=== PATIENT | male | born 1965 | race Caucasian/White ===

== ENCOUNTER 2016-03-30 07:39 | Emergency (ER) | payer BC ==
--- NOTE | 2016-03-30 08:02 | PDOC ---
History of Present Illness - General Chief Complaint: Injury Stated Complaint: HAND INJURY Time Seen by Provider: 03/30/16 07:53 History Source: Patient Exam Limitations: No Limitations - History of Present Illness Initial Comments: 03/30/16 07:58 50-year-old male status post injury to the left fourth digit. Patient states was using a hammer this morning when he missed the nail striking his left fingertip. Patient states is able to move the area but does have discomfort to the left fourth fingertip. Patient denies previous injury to the affected area and denies any sensory changes or radiation of pain. Timing/Duration: 1 hour Severity: mild Associated Symptoms: reports: denies symptoms Past History - Past Medical History Allergies/Adverse Reactions: Allergies Allergy/AdvReac Type Severity Reaction Status Date / Time No Known Allergies Allergy Verified 03/30/16 07:45 Home Medications: Ambulatory Orders NK [No Known Home Medication] 06/13/15 Diabetes: No HTN: No Hypercholesterolemia: Yes HIV: No Liver Disease: No - Surgical History Cardiac Surgery: (DENIES SX) - Immunization History Immunization Up to Date: Yes - Psycho/Social/Smoking Cessation Hx Anxiety: No Suicidal Ideation: No Smoking Status: No Smoking History: Never smoked Have you smoked in the past 12 months: No Number of Cigarettes Smoked Daily: 0 Information on smoking cessation initiated: No Hx Alcohol Use: No Drug/Substance Use Hx: No Substance Use Type: None Patient Lives Alone: No Lives with/in: spouse/SO Review of Systems - Review of Systems Able to Perform ROS?: Yes Musculoskeletal: Yes: Joint Pain (left 4th digit) Integumentary: No: Bruising, Erythema Endocrine: No: Symptoms Reported Hematologic/Lymphatic: No: Symptoms Reported *Physical Exam - Vital Signs Last Vital Signs Temp Pulse Resp BP Pulse Ox 97.5 F L 64 18 122/75 100 03/30/16 07:46 03/30/16 07:46 03/30/16 07:46 03/30/16 07:46 03/30/16 07:46 - Physical Exam General Appearance: Yes: Nourished, Appropriately Dressed. No: Apparent Distress (left 4th digit) Extremity: positive: Normal Capillary Refill (left fourth digit), Normal Inspection, Normal Range of Motion, Tender (left 4th dip joint) Integumentary: positive: Normal Color, Warm, Moist. negative: Swelling, Ecchymosis Neurologic: positive: Motor Strength 5/5 (left hand grasp, ambulatory) ED Treatment Course - RADIOLOGY Radiology Studies Ordered: Category Date Time Status FINGER(S) LEFT [RAD] Stat Radiology 03/30/16 07:57 Ordered Medical Decision Making - Medical Decision Making 03/30/16 08:01 Pt with left 4th digit crush injury. Pt ordered for xray to r/o fx 03/30/16 08:19 Patient be discharged home with supportive care. X-ray negative for acute findings. *DC/Admit/Observation/Transfer Diagnosis at time of Disposition: Contusion of fingertip Qualifiers: Encounter type: initial encounter Qualified Code(s): S60.00XA - Contusion of unspecified finger without damage to nail, initial encounter - Discharge Dispostion Disposition: HOME Condition at time of disposition: Good - Referrals Referrals: Manoj Barrientos MD [Primary Care Provider] - - Patient Instructions Printed Discharge Instructions: DI for Contusion Additional Instructions: The x-ray was negative and I recommend applying ice and taking Motrin for the next few days.
[2016-03-30 08:10] VITALS: BP 122/75; PULSE 64; TEMP 97.5; BMI 23.8
== END 2016-03-30 08:29 | disposition home or self-care (01) ==
LOC: JER 07:39
DX: S60.042A Contusion of left ring finger without damage to nail, initial encounter (principal); W27.8XXA Contact with other nonpowered hand tool, initial encounter; Y93.89 Activity, other specified; Y92.89 Other specified places as the place of occurrence of the external cause
CPT/HCPCS: 73140-TC-LT; 99281-25

== ENCOUNTER 2016-05-12 18:58 | Emergency (ER) | payer BC, OTHER ==
[2016-05-12 19:15] VITALS: BP 134/87; PULSE 65; TEMP 98; BMI 24.2
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
[2016-05-12] MEDS ORDERED: ACETAMINOPHEN 325 MG TABLET (FP) PO ONE (20:04)
[2016-05-12] MEDS ORDERED: ACETAMINOPHEN 325 MG TABLET (FP) ONE (20:06)
[2016-05-12 20:46] LABS: BASOPHIL 1.3 % (0-2.0); EOSINOPHIL 6.2 % (0-4.5); MCH 31.5 pg (25.7-33.7); MCHC 35.3 g/dl (32.0-35.9); MEAN CELL VOLUME 89.3 fl (80-96); MEAN PLT VOLUME 6.6 fl (7.5-11.1); NEUTROPHILS 48.1 % (42.8-82.8); PLATELET COUNT 245 K/MM3 (134-434); RDW 13.6 % (11.9-15.9); WHITE BLOOD COUNT 5.4 K/mm3 (4.0-10.0)
[2016-05-12 21:18] LABS: ALBUMIN 4.3 g/dl (3.4-5.0); ANION GAP 8 (8-16); BILIRUBIN,TOTAL 0.4 mg/dL (0.2-1.0); CALCIUM 9.7 mg/dL (8.5-10.1); CHOLESTEROL 300 mg/dL (50-200); CO2 27 mmol/L (21-32); CREATININE 1.1 mg/dL (0.7-1.3); GLUCOSE,RANDOM 86 mg/dL (74-106); LDH 173 U/L (87-241); PHOSPHOROUS 3.7 mg/dL (2.5-4.9); SGOT/AST 23 U/L (15-37); SGPT/ALT 41 U/L (12-78); TOT PROT 7.3 g/dl (6.4-8.2)
[2016-05-12 21:19] LABS: ALK PHOS 81 U/L (45-117)
[2016-05-12 22:01] LABS: HIV 1 & 2 AB NEGATIVE; HIV 1 AGp24 NEGATIVE
[2016-05-14 06:06] LABS: HEP B SURFACE AB Reactive (.)
== END 2016-05-12 20:58 | disposition home or self-care (01) ==
LOC: JERFT 18:58
DX: Z77.21 Contact with and (suspected) exposure to potentially hazardous body fluids (principal); Y35.91XA Legal intervention, means unspecified, law enforcement official injured, initial encounter; X58.XXXA Exposure to other specified factors, initial encounter; Y93.89 Activity, other specified; Y92.9 Unspecified place or not applicable; Y99.0 Civilian activity done for income or pay
CPT/HCPCS: 36415; 80053; 82465; 82977; 83615; 84100; 84478; 84550; 85025; 86704; 86706; 87340; 87389; 99281-25

== ENCOUNTER 2016-08-11 08:07 | Emergency (ER) | payer BC, OTHER ==
[2016-08-11 08:11] VITALS: BP 120/77; PULSE 78; TEMP 97.6; BMI 25.8
--- NOTE | 2016-08-11 08:29 | PDOC ---
History of Present Illness - General Chief Complaint: Eye Problem Stated Complaint: EYE INJURY Time Seen by Provider: 08/11/16 08:21 History Source: Patient Exam Limitations: No Limitations - History of Present Illness Initial Comments: 08/11/16 08:33 50 yr male states he accidentaly injured his right cheek below eye on the door frame of his car this AM. Pt denies any vision changes or eye pain. Severity: mild Past History - Past Medical History Allergies/Adverse Reactions: Allergies Allergy/AdvReac Type Severity Reaction Status Date / Time No Known Allergies Allergy Verified 08/11/16 08:11 Home Medications: Ambulatory Orders NK [No Known Home Medication] 06/13/15 Diabetes: No HTN: No Hypercholesterolemia: Yes HIV: No Liver Disease: No - Surgical History Cardiac Surgery: (DENIES SX) - Immunization History Immunization Up to Date: Yes - Psycho/Social/Smoking Cessation Hx Anxiety: No Suicidal Ideation: No Smoking Status: No Smoking History: Never smoked Have you smoked in the past 12 months: No Number of Cigarettes Smoked Daily: 0 Hx Alcohol Use: No Drug/Substance Use Hx: No Substance Use Type: None Review of Systems - Review of Systems Able to Perform ROS?: Yes Is the patient limited Yakut proficient: No Constitutional: No: Symptoms Reported HEENTM: Yes: See HPI. No: Symptoms Reported Respiratory: No: Symptoms reported Cardiac (ROS): No: Symptoms Reported ABD/GI: No: Symptoms Reported : No: Symptoms Reported Musculoskeletal: No: Symptoms Reported Integumentary: No: Symptoms Reported Neurological: No: Symptoms reported *Physical Exam - Vital Signs Last Vital Signs Temp Pulse Resp BP Pulse Ox 97.6 F 78 20 120/77 100 08/11/16 08:08 08/11/16 08:08 08/11/16 08:08 08/11/16 08:08 08/11/16 08:08 - Physical Exam General Appearance: Yes: Nourished, Appropriately Dressed HEENT: positive: EOMI, AMELIA, Other (no orbital bony tenderness, no redness to cheek or face, no eye redness or tearing, no evidence of trauma ) Neck: negative: Tender Respiratory/Chest: positive: Lungs Clear, Normal Breath Sounds. negative: Chest Tender Cardiovascular: positive: Regular Rhythm, Regular Rate Gastrointestinal/Abdominal: positive: Soft Musculoskeletal: positive: Normal Inspection Extremity: positive: Normal Capillary Refill, Normal Inspection, Normal Range of Motion Integumentary: positive: Normal Color, Dry, Warm. negative: Swelling, Ecchymosis, Bruising Neurologic: positive: Fully Oriented, Alert, Normal Mood/Affect, Normal Response , Motor Strength 5 Medical Decision Making - Medical Decision Making 08/11/16 08:27 cc: trauma under right eye with door frame this am no change in vision, no tearing or pain in the eye, no redness or bruising to the cheek area visual acuity with glasses is 20/30 both eyes neg blurry vision or changes in vision pt refused pain meds 08/11/16 08:36 *DC/Admit/Observation/Transfer Diagnosis at time of Disposition: Contusion Qualifiers: Encounter type: initial encounter Contusion area: head Contusion of head detail : periocular area Laterality: right Qualified Code(s): S00.11XA - Contusion of right eyelid and periocular area, initial encounter - Discharge Dispostion Disposition: HOME Condition at time of disposition: Good - Referrals Referrals: Manoj Barrientos MD [Primary Care Provider] - - Patient Instructions Additional Instructions: apply ice every 2hrs for 15 minutes for the next 2 days while awake take motrin as needed for any pain Return to ER for any worsening pain or changes in condition
== END 2016-08-11 08:50 | disposition home or self-care (01) ==
LOC: JERFT 08:07
DX: S00.11XA Contusion of right eyelid and periocular area, initial encounter (principal); W22.8XXA Striking against or struck by other objects, initial encounter; Y93.89 Activity, other specified; Y92.89 Other specified places as the place of occurrence of the external cause
CPT/HCPCS: 99281-25

== ENCOUNTER 2016-09-24 08:22 | Emergency (ER) | payer BC ==
[2016-09-24 08:36] VITALS: BP 119/75; PULSE 74; TEMP 97.4; BMI 24.2
--- NOTE | 2016-09-24 09:09 | PDOC ---
History of Present Illness - General Chief Complaint: Laceration Stated Complaint: INJURY Time Seen by Provider: 09/24/16 09:00 History Source: Patient Exam Limitations: No Limitations - History of Present Illness Initial Comments: 09/24/16 09:13 Patient states was moving some furniture when he collided with sharp edge of a dresser causing an abrasion and contusion to his left thigh. Denies numbness or tingling to foot, no other injury. Occurred: reports: just prior to arrival Severity: reports: mild Pain Location: reports: lower extremity (left thigh) Modifying Factors: improves with: None Past History - Travel Traveled outside of the country in the last 30 days: No Close contact w/someone who was outside of country & ill: No - Past Medical History Allergies/Adverse Reactions: Allergies Allergy/AdvReac Type Severity Reaction Status Date / Time No Known Allergies Allergy Verified 09/24/16 08:30 Home Medications: Ambulatory Orders NK [No Known Home Medication] 06/13/15 Diabetes: No HTN: No Hypercholesterolemia: Yes HIV: No Liver Disease: No - Surgical History Cardiac Surgery: (DENIES SX) - Immunization History Immunization Up to Date: Yes - Psycho/Social/Smoking Cessation Hx Anxiety: No Suicidal Ideation: No Smoking Status: No Smoking History: Never smoked Have you smoked in the past 12 months: No Number of Cigarettes Smoked Daily: 0 Information on smoking cessation initiated: No Hx Alcohol Use: No Drug/Substance Use Hx: No Substance Use Type: None Trauma Specific PMHX - Complaint Specific PMHX Arthritis: No Back Injury: No Neck Injury: No Review of Systems - Review of Systems Able to Perform ROS?: Yes Is the patient limited Iraqi proficient: Yes Constitutional: Yes: See HPI. No: Symptoms Reported HEENTM: No: Symptoms Reported Musculoskeletal: Yes: Symptoms Reported, See HPI, Joint Pain, Muscle Pain ( midpoint lateral left thigh) All Other Systems: Reviewed and Negative *Physical Exam - Vital Signs Last Vital Signs Temp Pulse Resp BP Pulse Ox 97.4 F L 74 20 119/75 99 09/24/16 08:31 09/24/16 08:31 09/24/16 08:31 09/24/16 08:31 09/24/16 08:31 - Physical Exam General Appearance: Yes: Nourished, Appropriately Dressed. No: Apparent Distress HEENT: positive: AMELIA, Normal ENT Inspection, TMs Normal, Pharynx Normal Extremity: positive: Normal Capillary Refill, Normal Inspection, Normal Range of Motion Integumentary: positive: Normal Color, Dry, Warm, Other (official abrasion to the lateral aspect of left mid thigh approximately 4 cm in length, with some denuded skin's surface. Has full range of motion leg, thigh is intact without hematoma or significant tenderness. 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 *DC/Admit/Observation/Transfer Diagnosis at time of Disposition: Abrasion, left thigh, initial encounter Qualifiers: Encounter type: initial encounter Qualified Code(s): S70.312A - Abrasion, left thigh, initial encounter - Discharge Dispostion Disposition: HOME Condition at time of disposition: Stable Admit: No - Patient Instructions Printed Discharge Instructions: DI for Abrasion Additional Instructions: Rest, ice to area on and off for 15 minutes 4-6 times a day Apply bacitracin ointment 2-3 times a day until healed Avoid heavy lifting or exercise until pain and swelling is resolved or until further directed Keep area highly elevated to reduce swelling Followup with orthopedist in one to 2 days if not improving, if significantly improved may wait one week for followup with orthopedist May use ibuprofen 2-200 mg tablets every 6 hours as needed for pain
== END 2016-09-24 09:17 | disposition home or self-care (01) ==
LOC: JERFT 08:22 → JER 08:22 → JERFT 09:17
DX: S70.12XA Contusion of left thigh, initial encounter (principal); S70.311A Abrasion, right thigh, initial encounter; W22.03XA Walked into furniture, initial encounter; Y93.E9 Activity, other interior property and clothing maintenance; Y92.019 Unspecified place in single-family (private) house as the place of occurrence of the external cause
CPT/HCPCS: 99281-25

== ENCOUNTER 2017-05-25 14:12 | Emergency (ER) | payer BC ==
[2017-05-25 14:21] VITALS: BP 115/70; PULSE 85; TEMP 98.1; BMI 24.2
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
== END 2017-05-25 14:47 | disposition home or self-care (01) ==
LOC: JERFT 14:12
DX: S60.311A Abrasion of right thumb, initial encounter (principal); X58.XXXA Exposure to other specified factors, initial encounter; Y35.891A Legal intervention involving other specified means, law enforcement official injured, initial encounter; Y93.89 Activity, other specified; Y92.9 Unspecified place or not applicable; Y99.0 Civilian activity done for income or pay
CPT/HCPCS: 99281-25

== ENCOUNTER 2018-01-17 17:07 | Emergency (ER) | payer BC ==
--- NOTE | 2018-01-17 17:33 | PDOC ---
Rapid Medical Evaluation Chief Complaint: Pain Time Seen by Provider: 01/17/18 17:29 Medical Evaluation: Allergies Allergy/AdvReac Type Severity Reaction Status Date / Time No Known Allergies Allergy Verified 05/25/17 14:18 01/17/18 17:29 I have performed a brief in person evaluation. The patient presents with a CC of : left ankle pain HPI: Pt is a 52 YO male who states that "I sprained my left ankle" today. PE: Skin: Clear Lungs: Clear Heart: RRR Abd: no pain upon palpation MS: Pt has pain on the lateral malleolus. No deformity. Neuro: Alert Psych: Appropriate affect I have ordered the following: Pt refused an ankle xray The patient will proceed to [facility] for further evaluation. 01/17/18 17:32 Discharge Disposition - Diagnosis Ankle sprain Qualifiers: Encounter type: initial encounter Laterality: left - Referrals Referrals: Manoj Barrientos MD [Primary Care Provider] - - Patient Instructions - Post Discharge Activity
[2018-01-17 17:35] VITALS: BP 111/74; PULSE 96; TEMP 98.4; BMI 24.2
--- NOTE | 2018-01-17 18:11 | PDOC ---
History of Present Illness - General Chief Complaint: Pain Stated Complaint: LEFT ANKLE INJURY (YPD) Time Seen by Provider: 01/17/18 17:29 History Source: Patient Exam Limitations: Clinical Condition - History of Present Illness Initial Comments: 01/17/18 18:13 Patient with no significant past medication present with complaint of pain to lateral side of left ankle status post twisting left ankle on the curb while working. Patient refuses x-ray of ankle and report any he will come back for x- ray if increased pain. Denies problem with ambulation and report ankle pain as mild. Denies fall or dizziness Timing/Duration: 24 hours Past History - Past Medical History Allergies/Adverse Reactions: Allergies Allergy/AdvReac Type Severity Reaction Status Date / Time No Known Allergies Allergy Verified 05/25/17 14:18 Home Medications: Ambulatory Orders Leg Brace [Ankle Brace] 1 each MC DAILY #1 each 01/17/18 Naproxen 500 mg PO BID PRN #20 tablet 01/17/18 COPD: No DVT: No Diabetes: No HTN: No Hypercholesterolemia: Yes Liver Disease: No - Surgical History Cardiac Surgery: (DENIES SX) - Immunization History Immunization Up to Date: Yes - Suicide/Smoking/Psychosocial Hx Smoking Status: No Smoking History: Never smoked Have you smoked in the past 12 months: No Number of Cigarettes Smoked Daily: 0 Hx Alcohol Use: No Drug/Substance Use Hx: No Substance Use Type: None Review of Systems - Review of Systems Able to Perform ROS?: Yes Is the patient limited Indian proficient: No Constitutional: No: Weakness HEENTM: No: Recent change in vision, Double Vision Respiratory: No: Symptoms reported Cardiac (ROS): No: Symptoms Reported ABD/GI: No: Symptoms Reported Musculoskeletal: Yes: See HPI, Joint Pain (left ankle), Muscle Pain (lateral side of left ankle). No: Joint Swelling, Muscle Weakness, Joint Stiffness Integumentary: No: Erythema All Other Systems: Reviewed and Negative *Physical Exam - Vital Signs Last Vital Signs Temp Pulse Resp BP Pulse Ox 98.4 F 96 H 16 111/74 99 01/17/18 17:32 01/17/18 17:32 01/17/18 17:32 01/17/18 17:32 01/17/18 17:32 - Physical Exam Comments: 01/17/18 18:14 GENERAL: Well developed, well nourished. Awake and alert. No acute distress. CARDIOVASCULAR: Regular rate and rhythm. No murmurs, rubs, or gallops. PULMONARY: No evidence of respiratory distress. Lungs clear to auscultation bilaterally. No wheezing, rales or rhonchi. ABDOMINAL: Soft. Non-tender. Non-distended. No rebound or guarding. No organomegaly. Normoactive bowel sounds MUSCULOSKELETAL : mild tenderness over lateral aspect of left ankle. no swelling to ankle. negative anterior-posterior drawer test of left ankle. No bony deformities EXTREMITIES: No cyanosis. No clubbing. No edema. No calf tenderness. SKIN: Warm and dry. Normal capillary refill. No rashes. No jaundice. NEUROLOGICAL: Alert, awake, appropriate. No motor deficits in the lower extremities. Gait is normal without ataxia. PSYCHIATRIC: Cooperative. Good eye contact. Appropriate mood and affect. General Appearance: Yes: Nourished, Appropriately Dressed. No: Apparent Distress Medical Decision Making - Medical Decision Making 01/17/18 18:06 Patient with no significant past medication present with complaint of pain to lateral side of left ankle status post twisting left ankle on the curb while working. Patient refuses x-ray of ankle and report any he will come back for x- ray if increased pain. Patient is stable for discharge on naproxen and ankle support brace with orthopedics follow-up as needed *DC/Admit/Observation/Transfer Diagnosis at time of Disposition: Ankle sprain Qualifiers: Encounter type: initial encounter Involved ligament of ankle: unspecified ligament Laterality: left Qualified Code(s): S93.402A - Sprain of unspecified ligament of left ankle, initial encounter - Discharge Dispostion Disposition: HOME Condition at time of disposition: Stable Decision to Admit order: No - Prescriptions Prescriptions: Leg Brace [Ankle Brace] 1 each MC DAILY #1 each Naproxen 500 mg PO BID PRN #20 tablet PRN Reason: ankle pain - Referrals Referrals: Manoj Barrientos MD [Primary Care Provider] - Braxton Shelley MD [Staff Physician] - - Patient Instructions Printed Discharge Instructions: DI for Ankle Sprain Additional Instructions: take medication as prescribed for pain. wear ankle support brace on left daily until symptoms resolves. soak left foot in perez salt water daily as needed until symptoms resolves - Post Discharge Activity
== END 2018-01-17 18:16 | disposition home or self-care (01) ==
LOC: JERFT 17:07 → JER 17:07 → JERFT 18:16
PROC: 2W3RX1Z Immobilization of Left Lower Leg using Splint (ICD-10-PCS; principal; 2018-01-17)
DX: S93.402A Sprain of unspecified ligament of left ankle, initial encounter (principal); W10.1XXA Fall (on)(from) sidewalk curb, initial encounter; Y93.89 Activity, other specified; Y92.480 Sidewalk as the place of occurrence of the external cause; Y99.0 Civilian activity done for income or pay
CPT/HCPCS: 99281-25

== ENCOUNTER 2018-03-16 13:51 | Emergency (ER) | payer OTHER, BC ==
[2018-03-16 13:57] VITALS: BP 135/81; PULSE 80; TEMP 98.6; BMI 24.2
[2018-03-16] MEDS ORDERED: IBUPROFEN 400 MG TABLET (FP) PO ONE ×2 (14:05→14:07)
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
== END 2018-03-16 14:20 | disposition home or self-care (01) ==
LOC: JERFT 13:51
DX: S63.621A Sprain of interphalangeal joint of right thumb, initial encounter (principal); S00.83XA Contusion of other part of head, initial encounter; Y35.811A Legal intervention involving manhandling, law enforcement official injured, initial encounter; Y93.89 Activity, other specified; Y92.89 Other specified places as the place of occurrence of the external cause; Y99.0 Civilian activity done for income or pay
CPT/HCPCS: 99281-25

== ENCOUNTER 2018-05-06 11:31 | Emergency (ER) | payer BC, OTHER ==
[2018-05-06 11:44] VITALS: BMI 24.2
--- NOTE | 2018-05-06 12:03 | PDOC ---
History of Present Illness - General Chief Complaint: Injury Stated Complaint: SLIP AND FALL Time Seen by Provider: 05/06/18 11:56 History Source: Patient Exam Limitations: No Limitations - History of Present Illness Initial Comments: 05/06/18 12:06 52 yo M w/ no sig PMHx comes in c/o R lower leg pain s/p trip and fall on ice an hour ago. He denies head trauma/injury, no LOC< no pain anywhere else. ABle to ambulate without any difficulties. NO numbness/tignling anywhere, no sensory deficits, no ankle/hip pain, no back/neck pain. 05/06/18 12:11 Past History - Past Medical History Allergies/Adverse Reactions: Allergies Allergy/AdvReac Type Severity Reaction Status Date / Time No Known Allergies Allergy Verified 05/06/18 11:42 Home Medications: Ambulatory Orders NK [No Known Home Medication] 05/06/18 COPD: No DVT: No Diabetes: No HTN: No Hypercholesterolemia: Yes Liver Disease: No - Surgical History Cardiac Surgery: (DENIES SX) - Immunization History Immunization Up to Date: Yes - Suicide/Smoking/Psychosocial Hx Smoking Status: No Smoking History: Never smoked Have you smoked in the past 12 months: No Number of Cigarettes Smoked Daily: 0 Hx Alcohol Use: No Drug/Substance Use Hx: No Substance Use Type: None Review of Systems - Review of Systems Able to Perform ROS?: Yes Constitutional: No: Chills, Fever, Malaise, Night Sweats HEENTM: No: Eye Pain, Recent change in vision, Throat Pain Respiratory: No: Cough, Shortness of Breath Cardiac (ROS): No: Chest Pain, Palpitations, Chest Tightness ABD/GI: No: Diarrhea, Nausea, Vomiting, Abdominal cramping : No: Dysuria, Hematuria Musculoskeletal: No: Back Pain Integumentary: No: Rash Neurological: No: Headache, Numbness, Dizziness Psychiatric: No: Change in Appetite Endocrine: No: Unexplained Weight Loss *Physical Exam - Vital Signs Last Vital Signs Temp Pulse Resp BP Pulse Ox 110/70 99 05/06/18 11:43 05/06/18 11:43 - Physical Exam General Appearance: Yes: Nourished. No: Apparent Distress HEENT: positive: AMELIA, Normal ENT Inspection, Normal Voice. negative: Pale Conjunctivae, Scleral Icterus (R), Scleral Icterus (L) Neck: positive: Supple. negative: Decreased range of motion, Tender midline Respiratory/Chest: negative: Respiratory Distress, Accessory Muscle Use Cardiovascular: positive: Regular Rate Musculoskeletal: positive: Normal Inspection. negative: CVA Tenderness, Decreased Range of Motion Extremity: positive: Normal Capillary Refill, Normal Range of Motion, Other ( RLE without assymetry, no deformities, no skin changes, no skin breaks, no swelling, (+)very mild tenderness on palpation of promixal tibia. NO knee tenderness, no ankle tenderness, 5/5 strength RLE, able to straight leg raise. Good cap refill, NVI. Good pulses.). negative: Tender, Pedal Edema Integumentary: positive: Normal Color, Dry. negative: Jaundice, Rash Neurologic: positive: Fully Oriented, Alert, Normal Mood/Affect Moderate Sedation - Procedure Monitoring Vital Signs: Procedure Monitoring Vital Signs Temperature Pulse Rate Respiratory Rate Blood Pressure 110/70 05/06/18 11:43 O2 Sat by Pulse Oximetry (%) 99 05/06/18 11:43 Medical Decision Making - Medical Decision Making 05/06/18 12:14 52 yo M w/ leg injury s/p slip and fall. No clinical indication for xray, likely contusion. WIll recommended NSAIDs as needed, ICE and PMD follow up. Return for worsening/concerning symptoms. Pt verbalizes understanding and agrees with plan *DC/Admit/Observation/Transfer Diagnosis at time of Disposition: Leg injury Qualifiers: Encounter type: initial encounter Laterality: right Qualified Code(s): S89.91XA - Unspecified injury of right lower leg, initial encounter - Discharge Dispostion Disposition: HOME Condition at time of disposition: Stable - Referrals Referrals: Manoj Barrientos MD [Primary Care Provider] - - Patient Instructions Additional Instructions: Follow up with your regular doctor. If the pain gets worse, please don't hesitate to return. You may take ibuprofen for pain, and apply ice to the area of injury. - Post Discharge Activity
[2018-05-06 12:14] VITALS: BP 114/63; PULSE 90
== END 2018-05-06 12:15 | disposition home or self-care (01) ==
LOC: JERFT 11:31
DX: S89.81XA Other specified injuries of right lower leg, initial encounter (principal); W00.2XXA Other fall from one level to another due to ice and snow, initial encounter; Y93.89 Activity, other specified; Y92.89 Other specified places as the place of occurrence of the external cause; Y99.8 Other external cause status; E78.00 Pure hypercholesterolemia, unspecified
CPT/HCPCS: 99281-25

== ENCOUNTER 2018-05-16 10:42 | Emergency (ER) | payer OTHER, BC ==
[2018-05-16 11:27] VITALS: BP 122/71; PULSE 80; TEMP 98; BMI 25.8
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
== END 2018-05-16 15:06 | disposition home or self-care (01) ==
LOC: JERFT 10:42
DX: S80.02XA Contusion of left knee, initial encounter (principal); V43.52XA Car driver injured in collision with other type car in traffic accident, initial encounter; Y92.414 Local residential or business street as the place of occurrence of the external cause; Y93.89 Activity, other specified; Y99.8 Other external cause status
CPT/HCPCS: 99281-25

== ENCOUNTER 2018-11-22 11:27 | Emergency (ER) | payer OTHER, BC ==
[2018-11-22 11:43] VITALS: BP 130/70; PULSE 88; TEMP 98.2; BMI 24.2
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
== END 2018-11-22 12:12 | disposition home or self-care (01) ==
LOC: JERFT 11:27
DX: S80.212A Abrasion, left knee, initial encounter (principal); Y35.891A Legal intervention involving other specified means, law enforcement official injured, initial encounter; X58.XXXA Exposure to other specified factors, initial encounter; Y93.89 Activity, other specified; Y92.89 Other specified places as the place of occurrence of the external cause; Y99.0 Civilian activity done for income or pay; E78.00 Pure hypercholesterolemia, unspecified
CPT/HCPCS: 99282-25

== ENCOUNTER 2019-04-09 16:17 | Emergency (ER) | payer OTHER, BC ==
[2019-04-09 16:22] VITALS: BP 134/80; PULSE 75; TEMP 98.1; BMI 24.2
[2019-04-09] MEDS ORDERED: IBUPROFEN 600 MG TABLET (FP) PO ONE ×2 (16:42→16:54)
--- NOTE | 2019-04-09 16:47 | PDOC ---
History of Present Illness - General Chief Complaint: Injury Stated Complaint: RT HAND INJURY Time Seen by Provider: 04/09/19 16:40 History Source: Patient Exam Limitations: No Limitations (R hand pain after a cooking pot fell on hand at home) Past History - Travel Traveled outside of the country in the last 30 days: No Close contact w/someone who was outside of country & ill: No - Past Medical History Allergies/Adverse Reactions: Allergies Allergy/AdvReac Type Severity Reaction Status Date / Time No Known Allergies Allergy Verified 11/22/18 11:43 Home Medications: Ambulatory Orders NK [No Known Home Medication] 05/06/18 COPD: No DVT: No Diabetes: No HTN: No Hypercholesterolemia: Yes Liver Disease: No - Surgical History Cardiac Surgery: (DENIES SX) - Immunization History Immunization Up to Date: Yes - Psycho Social/Smoking Cessation Hx Smoking Status: No Smoking History: Never smoked Have you smoked in the past 12 months: No Number of Cigarettes Smoked Daily: 0 Hx Alcohol Use: No Drug/Substance Use Hx: No Substance Use Type: None Review of Systems - Review of Systems Constitutional: No: Chills, Fever Musculoskeletal: Yes: Joint Pain (right hand pain). 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 Patient is left-hand dominant. Complaining of pain. Examination there is tenderness across the knuckle of the left hand patient does have full range of motion. 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 He is refusing x- ray at the time wants to try Motrin in the interim. Discharge - Discharge Information Problems reviewed: Yes Clinical Impression/Diagnosis: Hand pain, right Condition: Stable Disposition: HOME - Admission No - Additional Discharge Information Prescription Drug Monitoring Program (I-STOP) results: I-STOP not reviewed - Follow up/Referral Referrals: Braxton Shelley MD [Staff Physician] - - Patient Discharge Instructions Patient Printed Discharge Instructions: DI for Hand Pain Additional Instructions: You were seen for hand pain today. You have full range of motion on examination. There is no obvious deformity on examination. However an x-ray was recommended but you refused and opted to wait. You may take Motrin for the pain. An orthopedic referral was placed if pain persist he should follow-up. Please return to the emergency room if worsening symptoms occurs - Post Discharge Activity
== END 2019-04-09 16:59 | disposition home or self-care (01) ==
LOC: JERFT 16:17
DX: M79.641 Pain in right hand (principal); W22.8XXA Striking against or struck by other objects, initial encounter; Y93.89 Activity, other specified; Y92.018 Other place in single-family (private) house as the place of occurrence of the external cause; Y99.8 Other external cause status
CPT/HCPCS: 99282-25

== ENCOUNTER 2019-10-04 09:54 | Emergency (ER) | payer BC, OTHER ==
[2019-10-04 10:08] VITALS: BP 114/60; PULSE 77; TEMP 98.2; BMI 24.2
--- NOTE | 2019-10-04 10:38 | PDOC ---
History of Present Illness - General Chief Complaint: Pain Stated Complaint: LT. FOOT INJURY Time Seen by Provider: 10/04/19 10:15 History Source: Patient Exam Limitations: No Limitations Past History - Travel History Traveled outside of the country in the last 30 days: No Close contact w/someone who was outside of country & ill: No - Medical History Allergies/Adverse Reactions: Allergies Allergy/AdvReac Type Severity Reaction Status Date / Time No Known Allergies Allergy Verified 10/04/19 10:07 Home Medications: Ambulatory Orders Ibuprofen 600 mg PO Q6H #30 tablet 10/04/19 COPD: No DVT: No Diabetes: No HTN: No Hypercholesterolemia: Yes Liver Disease: No - Surgical History Cardiac Surgery: (DENIES SX) - Immunization History Immunization Up to Date: Yes - Psycho-Social/Smoking History Smoking Status: No Smoking History: Never smoked Have you smoked in the past 12 months: No Number of Cigarettes Smoked Daily: 0 Information on smoking cessation initiated: No - Substance Abuse Hx (Audit-C & DAST Scrn) How often the patient has a drink containing alcohol: Never Score: In Men: 4 or > Positive; In Women: 3 or > Positive: 0 Screen Result (Pos requires Nsg. Audit-10AR): Negative In the last yr the pt used illegal drug/Rx for NonMed reason: No Score: Yes response is considered Positive: 0 Screen Result (Positive result requires Nsg. DAST-10): Negative Review of Systems - Review of Systems Able to Perform ROS?: Yes Comments:: 10/04/19 10:43 CONSTITUTIONAL: Absent: fever, chills, diaphoresis, generalized weakness, malaise, loss of appetite MUSCULOSKELETAL: Present: L foot pain Absent: myalgia, arthralgia, joint swelling SKIN: Absent: rash, itching, pallor NEUROLOGIC: Absent: headache, focal weakness or paresthesias, dizziness, unsteady gait, seizure, mental status changes, bladder or bowel incontinence PSYCHIATRIC: Absent: anxiety, depression, suicidal or homicidal ideation, hallucinations. Is the patient limited Croatian proficient: No *Physical Exam - Vital Signs Last Vital Signs Temp Pulse Resp BP Pulse Ox 98.2 F 77 17 114/60 100 10/04/19 10:05 10/04/19 10:05 10/04/19 10:05 10/04/19 10:10/04/19 10:05 - Physical Exam 08/06/20 10:44 GENERAL: The patient is awake, alert, and fully oriented, in no acute distress. HEAD: Normal with no signs of trauma. EYES: Pupils equal, round and reactive to light, extraocular movements intact, sclera anicteric, conjunctiva clear. EXTREMITIES: Tenderness to palpation of the left second and third toes, no palpable deformities. Normal range of motion, no edema. NEUROLOGICAL: Normal speech, normal gait. PSYCH: Normal mood, normal affect. SKIN: Warm, Dry, normal turgor, no rashes or lesions noted. Medical Decision Making - Medical Decision Making 10/04/19 10:48 The patient is a 54-year-old male who presents to the ER with left second and third toe pain after dropping a brick on it yesterday. He does not believe anything is broken. He does not want an x-ray at this time. Denies numbness and tingling weakness the affected extremity. A/P: Left second and third toe pain. On exam no palpable deformities. No bruising noted the second or third left toes. Patient is full range of motion of the second and third left toes. Toes were nancy taped out of precaution as patient did not want an x-ray at this time. Advised if his pain should get worse to have the patient return for an x- ray. He understands and is accepting of this treatment plan. Motrin and ice at home for symptomatic relief. Follow-up with his primary within this week. I discussed the physical exam findings, ancillary test results and final diagnoses with the patient. I answered all of the patient's questions. The patient was satisfied with the care received and felt comfortable with the discharge plan and treatment plan. The Patient agrees to follow up with the primary care physician/specialist within 24-72 hours. Return precautions were given. Discharge - Discharge Information Problems reviewed: Yes Clinical Impression/Diagnosis: Left foot pain Condition: Stable Disposition: HOME - Admission No - Additional Discharge Information Prescriptions: Ibuprofen 600 mg PO Q6H #30 tablet - Follow up/Referral Referrals: Dede Barrientos MD [Primary Care Provider] - - Patient Discharge Instructions Patient Printed Discharge Instructions: DI for Foot Pain Additional Instructions: You were seen for your foot pain today. Please nancy tape the toes to help with pain. You may take Motrin every 6 hours as needed for pain. Follow dose instruction on the bottle. Please use ice to the area. Follow-up with your primary care doctor as needed. Return to the ER for worsening pain, numbness and tingling to the foot or if you have any changes in your symptoms. - Post Discharge Activity
== END 2019-10-04 10:42 | disposition home or self-care (01) ==
LOC: JERFT 09:54
DX: M79.672 Pain in left foot (principal)
CPT/HCPCS: 99283-25

== ENCOUNTER 2019-11-28 11:15 | Emergency (ER) | payer BC, OTHER ==
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
[2019-11-28 11:24] VITALS: BP 140/90; PULSE 65; TEMP 97.7; BMI 24.2
[2019-11-28] MEDS ORDERED: IBUPROFEN 600 MG TABLET (FP) PO ONE (11:27)
== END 2019-11-28 11:42 | disposition home or self-care (01) ==
LOC: FER 11:15
DX: S80.212A Abrasion, left knee, initial encounter (principal); S51.012A Laceration without foreign body of left elbow, initial encounter
CPT/HCPCS: 99283-25

== ENCOUNTER 2020-06-05 18:10 | Emergency (ER) | payer BC ==
[2020-06-05 18:18] VITALS: BP 151/86; PULSE 91; TEMP 98.8; BMI 24.2
== END 2020-06-05 18:53 | disposition home or self-care (01) ==
LOC: JERFT 18:10 → JER 18:10 → JERFT 18:53
DX: S93.491A Sprain of other ligament of right ankle, initial encounter (principal); X50.9XXA Other and unspecified overexertion or strenuous movements or postures, initial encounter
CPT/HCPCS: 73610-TC-RT-FY; 99283-25

== ENCOUNTER 2020-08-26 16:48 | Emergency (ER) | payer BC ==
[2020-08-26 17:01] VITALS: BP 130/77; PULSE 93; TEMP 98.1; BMI 24.2
== END 2020-08-26 17:51 | disposition home or self-care (01) ==
LOC: JERFT 16:48
DX: S60.411A Abrasion of left index finger, initial encounter (principal)
CPT/HCPCS: 99281-25

== ENCOUNTER 2020-12-02 10:28 | Emergency (ER) | payer BC ==
[2020-12-02 10:50] VITALS: BP 135/73; PULSE 83; TEMP 97.9; BMI 25.0
== END 2020-12-02 11:49 | disposition home or self-care (01) ==
LOC: JERFT 10:28
DX: S30.0XXA Contusion of lower back and pelvis, initial encounter (principal); W19.XXXA Unspecified fall, initial encounter; Y92.9 Unspecified place or not applicable
CPT/HCPCS: 99283-25

== ENCOUNTER 2021-01-10 10:02 | Emergency (ER) | payer BC ==
[2021-01-10 10:09] VITALS: BP 123/80; PULSE 88; TEMP 97.6; BMI 25.0
== END 2021-01-10 13:15 | disposition home or self-care (01) ==
LOC: JER 10:02
DX: S93.492A Sprain of other ligament of left ankle, initial encounter (principal); W18.43XA Slipping, tripping and stumbling without falling due to stepping from one level to another, initial encounter; X50.0XXA Overexertion from strenuous movement or load, initial encounter; Y93.02 Activity, running
CPT/HCPCS: 73610-TC-LT-FY; 99283-25

== ENCOUNTER 2021-03-27 04:38 | Day surgery (SDC) | payer BC ==
[2021-03-23 14:44] VITALS: BMI 25.7
[2021-03-27 09:11] VITALS: TEMP 97.1
[2021-03-27 09:33] VITALS: BP 114/74; PULSE 75
== END 2021-03-27 09:45 | disposition home or self-care (01) ==
LOC: JASU-ENDO 04:38
PROVIDERS: ATTEND Internal Medicine Gastroenterology
PROC: 0DJD8ZZ Inspection of Lower Intestinal Tract, Via Natural or Artificial Opening Endoscopic (ICD-10-PCS; principal; 2021-03-27 09:00)
DX: Z12.11 Encounter for screening for malignant neoplasm of colon (principal); K57.30 Diverticulosis of large intestine without perforation or abscess without bleeding; K64.8 Other hemorrhoids; Z80.0 Family history of malignant neoplasm of digestive organs

== ENCOUNTER 2021-04-04 14:08 | Emergency (ER) | payer BC ==
[2021-04-04 14:31] VITALS: BP 131/88; PULSE 80; TEMP 97.5; BMI 25.0
== END 2021-04-04 18:25 | disposition home or self-care (01) ==
LOC: JERFT 14:08
DX: S50.01XA Contusion of right elbow, initial encounter (principal); W00.0XXA Fall on same level due to ice and snow, initial encounter
CPT/HCPCS: 73070-TC-RT-FY; 99283-25

== ENCOUNTER 2021-08-15 09:05 | Emergency (ER) | payer BC ==
[2021-08-15 09:11] VITALS: BP 137/78; PULSE 82; TEMP 98.1; BMI 24.2
== END 2021-08-15 10:13 | disposition home or self-care (01) ==
LOC: JERFT 09:05
DX: M79.644 Pain in right finger(s) (principal)
CPT/HCPCS: 73140-TC-RT-FY; 99283-25

== ENCOUNTER 2022-01-27 13:19 | Emergency (ER) | payer BC ==
[2022-01-27 15:09] VITALS: BP 132/81; PULSE 92; RESP 18; TEMP 97.9; BMI 25.8
== END 2022-01-27 16:02 | disposition home or self-care (01) ==
LOC: JER 13:19 → JERFT 13:19
DX: S89.92XA Unspecified injury of left lower leg, initial encounter (principal); W22.8XXA Striking against or struck by other objects, initial encounter
CPT/HCPCS: 73562-TC-LT-FY; 99283-25

== ENCOUNTER 2022-06-15 13:44 | Emergency (ER) | payer BC ==
[2022-06-15 13:58] VITALS: BP 130/75; PULSE 67; RESP 18; TEMP 98; BMI 24.2
[2022-06-15] MEDS ORDERED: IBUPROFEN 600 MG TABLET (FP) PO ONE ×2 (15:11→15:16)
== END 2022-06-15 15:24 | disposition home or self-care (01) ==
LOC: JERFT 13:44
DX: S60.111A Contusion of right thumb with damage to nail, initial encounter (principal); W22.8XXA Striking against or struck by other objects, initial encounter; Y93.J3 Activity, string instrument playing
CPT/HCPCS: 73130-TC-RT-FY; 73140-TC-RT-FY; 99283-25

== ENCOUNTER 2022-10-05 13:07 | Emergency (ER) | payer BC ==
[2022-10-05 13:34] VITALS: BP 123/61; PULSE 102; RESP 14; TEMP 97.8; BMI 22.8
== END 2022-10-05 14:56 | disposition home or self-care (01) ==
LOC: JERFT 13:07
DX: S63.502A Unspecified sprain of left wrist, initial encounter (principal); M25.532 Pain in left wrist; W19.XXXA Unspecified fall, initial encounter; X50.9XXA Other and unspecified overexertion or strenuous movements or postures, initial encounter
CPT/HCPCS: 73110-TC-LT-FY; 73130-TC-LT-FY; 99283-25

== ENCOUNTER 2023-01-04 10:18 | Emergency (ER) | payer BC ==
[2023-01-04 10:25] VITALS: BP 120/76; PULSE 77; RESP 18; TEMP 98; BMI 22.6
== END 2023-01-04 11:00 | disposition home or self-care (01) ==
LOC: JERFT 10:18
DX: T22.111A Burn of first degree of right forearm, initial encounter (principal); X10.2XXA Contact with fats and cooking oils, initial encounter
CPT/HCPCS: 99283-25

== ENCOUNTER 2023-03-17 11:37 | Emergency (ER) | payer BC ==
[2023-03-17 12:00] VITALS: BP 116/68; PULSE 72; RESP 18; TEMP 98.2; BMI 22.6
[2023-03-17] MEDS ORDERED: IBUPROFEN 600 MG TABLET (FP) PO ONE ×2 (12:41→12:54)
== END 2023-03-17 14:00 | disposition home or self-care (01) ==
LOC: JERFT 11:37
DX: S93.401A Sprain of unspecified ligament of right ankle, initial encounter (principal); M25.571 Pain in right ankle and joints of right foot; X50.1XXA Overexertion from prolonged static or awkward postures, initial encounter
CPT/HCPCS: 73610-TC-RT-FY; 73630-TC-RT-FY; 99283-25

== ENCOUNTER 2023-04-28 16:37 | Emergency (ER) | payer BC ==
[2023-04-28 16:49] VITALS: BP 136/79; PULSE 85; RESP 18; TEMP 97.7; BMI 22.6
[2023-04-28] MEDS ORDERED: IBUPROFEN 400 MG TABLET (FP) PO ONE (18:40)
[2023-04-28] MEDS: IBUPROFEN 400 MG TABLET (FP) PO ONE (18:41)
== END 2023-04-28 19:16 | disposition home or self-care (01) ==
LOC: JER 16:37 → JERFT 16:37
DX: M79.672 Pain in left foot (principal); R22.42 Localized swelling, mass and lump, left lower limb; S90.932A Unspecified superficial injury of left great toe, initial encounter; W22.8XXA Striking against or struck by other objects, initial encounter
CPT/HCPCS: 73630-TC-LT; 99283-25

== ENCOUNTER 2023-10-20 11:40 | Emergency (ER) | payer BC ==
[2023-10-20 11:45] VITALS: BP 130/74; PULSE 74; RESP 18; TEMP 98.3; BMI 22.6
== END 2023-10-20 12:33 | disposition home or self-care (01) ==
LOC: JERFT 11:40
DX: S90.32XA Contusion of left foot, initial encounter (principal); W20.8XXA Other cause of strike by thrown, projected or falling object, initial encounter
CPT/HCPCS: 73630-TC-LT; 99283-25

== ENCOUNTER 2024-01-07 10:19 | Emergency (ER) | payer BC ==
[2024-01-07 10:25] VITALS: BP 153/84; PULSE 67; RESP 14; TEMP 98.6; BMI 22.6
== END 2024-01-07 12:45 | disposition home or self-care (01) ==
LOC: JERFT 10:19
DX: S80.811A Abrasion, right lower leg, initial encounter (principal); W10.8XXA Fall (on) (from) other stairs and steps, initial encounter
CPT/HCPCS: 73590-TC-RT-FY; 99283-25

== ENCOUNTER 2024-05-26 10:25 | Emergency (ER) | payer BC ==
[2024-05-26 10:32] VITALS: BP 129/72; PULSE 88; RESP 18; TEMP 98.2; BMI 30.9
== END 2024-05-26 11:25 | disposition home or self-care (01) ==
LOC: JERFT 10:25
DX: S90.111A Contusion of right great toe without damage to nail, initial encounter (principal); W20.8XXA Other cause of strike by thrown, projected or falling object, initial encounter
CPT/HCPCS: 73630-TC-RT-FY; 99283-25

== ENCOUNTER 2024-12-10 15:54 | Emergency (ER) | payer BC ==
[2024-12-10 16:05] VITALS: BP 139/73; PULSE 88; RESP 18; TEMP 97.9; BMI 23.3
[2024-12-10] MEDS: LIDOCAINE 5% TOPICAL PATCH TP ONE (17:15)
[2024-12-10] MEDS: IBUPROFEN 400 MG TABLET (FP) PO ONE (17:15)
[2024-12-10] MEDS ORDERED: LIDOCAINE PATCH REMOVAL MC SCH (22:00)
== END 2024-12-10 17:55 | disposition home or self-care (01) ==
LOC: JERFT 15:54
DX: M25.512 Pain in left shoulder (principal); X50.0XXA Overexertion from strenuous movement or load, initial encounter
CPT/HCPCS: 99283-25